=== PATIENT | male | born 1965 | race Caucasian/White ===

== ENCOUNTER 2024-11-11 11:02 | Emergency (ER) | payer BC ==
[2024-11-11] MEDS: EPINEPHrine 1:10,000 1 MG/10 ML Syringe IVPUSH ONE ×2 (11:06→11:20)
[2024-11-11 11:15] LABS: BASOPHILS ABSOLUTE AUTO 0.1 x10-3/uL (0.0-0.3); BASOPHILS PERCENT AUTO 0.4 % (0.3-3.8); EOSINOPHILS ABSOLUTE AUTO 0.2 x10-3/uL (0.0-0.6); EOSINOPHILS PERCENT AUTO 1.3 % (0.1-6.8); HEMATOCRIT 42.9 % (38.3-50.1); HEMOGLOBIN 14.1 g/dL (12.9-17.7); LYMPHOCYTES ABSOLUTE AUTO 4.2 x10-3/uL (0.5-4.5); LYMPHOCYTES PERCENT AUTO 30.9 % (15.8-45.3); MEAN CORPUSCULAR HEMOGLOBIN 29.8 pg (27.0-33.3); MEAN CORPUSCULAR HGB CONC 32.8 g/dL (28.7-35.3); MEAN CORPUSCULAR VOLUME 90.8 fL (80.8-98.7); MEAN PLATELET VOLUME 8.7 fL (6.7-11.0); MONOCYTES ABSOLUTE AUTO 0.6 x10-3/uL (0.0-1.2); MONOCYTES PERCENT AUTO 4.2 % (5.5-15.2); NEUTROPHILS ABSOLUTE AUTO 8.6 x10-3/uL (1.7-6.9); NEUTROPHILS PERCENT AUTO 63.2 % (40.3-71.8); PLATELET COUNT,PLT 192 x10(3)uL (117-477); RED BLOOD CELL COUNT 4.73 x10(6)uL (3.90-5.90); RED CELL DISTRIBUTION WIDTH 14.3 % (12.4-15.0); WHITE BLOOD CELL COUNT,WBC 13.7 x10-3/uL (3.2-10.1)
[2024-11-11] MEDS: Atropine 0.1 MG/ML 10 ML Syringe IVPUSH ONE (11:19)
[2024-11-11] MEDS: EPINEPHrine 1 MG in Sodium Chloride 0.9% 100 ML IV SCH (11:27)
[2024-11-11 11:32] LABS: PTT,PARTIAL THROMBOPLSTIN TIME 28.3 SECONDS (24.4-33.2)
[2024-11-11 11:36] LABS: ALBUMIN 2.6 g/dL (3.5-5.2); ALKALINE PHOSPHATASE 58 IU/L (56-112); BILIRUBIN TOTAL 0.4 mg/dL (0.1-1.3); BLOOD UREA NITROGEN,BUN 19 mg/dL (7-18); CALCIUM 8.2 mg/dL (8.6-10.2); CARBON DIOXIDE,CO2 18 mmol/L (21-32); CHLORIDE,CL 105 mmol/L (100-110); ESTIMATED GFR 36 mL/min (>60); GLUCOSE RANDOM 397 mg/dL (80-116); INR 1.02 (1.00-1.24); POTASSIUM,K 4.3 mmol/L (3.5-5.3); PROTEIN TOTAL,TP 5.3 g/dL (6.0-8.0); PROTHROMBIN TIME 10.6 sec (9.0-11.1); SODIUM,NA 140 mmol/L (135-145)
[2024-11-11 11:38] LABS: CREATININE 2.1 mg/dL (0.70-1.30)
[2024-11-11 11:39] LABS: ALANINE AMINOTRANSFERASE,ALT 201 U/L (12-36); ASPARTATE AMNIOTRANSFERASE,AST 170 IU/L (5-25)
== END 2024-11-11 11:52 ==
LOC: FB.ED 11:02
DX: I46.9 Cardiac arrest, cause unspecified (principal); Z79.51 Long term (current) use of inhaled steroids; Z79.899 Other long term (current) drug therapy
CPT/HCPCS: 36415; 51702; 71045; 80053; 82947; 84484; 85025; 85610; 85730; 92950; 93005; 93010; 99152; 99153; 99291; 99291-25; J0171; J0461; J7050